=== PATIENT | female | born 2000 | race Caucasian/White ===

== ENCOUNTER 2020-02-01 17:18 | Emergency (ER) | payer OTHER ==
[~2020-02-01] VITALS: Ht 170.2 cm; Wt 48.3 kg
[2020-02-01 17:27] VITALS: BP 125/70
--- NOTE | 2020-02-01 17:34 | NUR ---
SMALL DOG BITE TO LEFT INDEX FINGER.
--- NOTE | 2020-02-01 17:34 | NUR ---
Note cameron in EDM - 02/01/20 at 1800 by ALDO SMALL DOG BITE TO REIGHT INDEX FINGER.
--- NOTE | 2020-02-01 17:37 | NUR ---
SMALL PUNCTURE WOUND NOTED ON FINGER, NO BLEEDING OR OOZING NOTED. PT DENIES PAIN, REPORTS DOG IS CURRENT ON VACCINES.
[2020-02-01] MEDS ORDERED: NEOSPORIN OINT. PKT 1 PACKET ONE (17:40)
== END 2020-02-01 18:00 | disposition home or self-care (01) ==
LOC: ED 17:54
DX: S61.250A Open bite of right index finger without damage to nail, initial encounter (principal); W54.0XXA Bitten by dog, initial encounter; Y93.89 Activity, other specified; Y92.69 Other specified industrial and construction area as the place of occurrence of the external cause; Y99.0 Civilian activity done for income or pay
CPT/HCPCS: 99282